=== PATIENT | female | born 1995 | race Two or more races ===

== ENCOUNTER 2023-07-20 09:23 | Emergency (ER) | payer OTHER ==
[~2023-07-20] VITALS: Ht 157.5 cm; Wt 95.3 kg
[2023-07-20 12:54] LABS: HEMATOCRIT 42.3 % (36.0-45.00); HEMOGLOBIN 14.2 g/dL (12.0-15.00); MEAN CELL VOLUME 84.3 fL (80.00-100.00); MEAN CORPUSCULAR HEMOGLOBIN 28.2 pg (27.00-32.0); MEAN CORPUSCULAR HGB CONC 33.5 g/dl (32.0-36.0); PLATELET COUNT 395 K/uL (150-450); RED BLOOD COUNT 5.02 M/uL (4.00-6.00)
[2023-07-20 13:11] LABS: CALCIUM 9.1 mg/dL (8.5-10.1); CREATININE SERUM 0.72 mg/dL (0.55-1.02); GFR 95.11; POTASSIUM 3.57 mEq/L (3.5-5.1)
== END 2023-07-20 15:29 | disposition home or self-care (01) ==
LOC: ER 09:24
PROVIDERS: General Practice
DX: O20.0 Threatened abortion (principal); Z3A.01 Less than 8 weeks gestation of pregnancy